=== PATIENT | male | born 1950 | race Native Hawaiian/Other Pacific Islander ===

== ENCOUNTER 2016-12-22 22:52 | Observation (INO) | payer SELFPAY ==
[2016-12-22 23:04] VITALS: BMI 25.8
[2016-12-22] MEDS ORDERED: DiphenhydrAMINE 50 mg/ml Inj IVP ONE (23:14)
[2016-12-22] MEDS ORDERED: Famotidine 20mg/50ml 20 MG/50 ML BAG IVPB STA (23:14)
[2016-12-22 23:42] LABS: ADD MANUAL DIFF? NO
--- NOTE | 2016-12-22 23:43 | ED PDOC ---
Arrival/HPI - General Chief Complaint: Allergic Reaction Time Seen by Provider: 12/22/16 23:04 Historian: Patient, Family - History of Present Illness Narrative History of Present Illness (Text): 12/22/16 23:11 66 year old male, whose past medical history includes hypertension, diabetes mellitus, and CVA , presents to the emergency department accompanied by family with complaints of a diffuse rash today. Family are unsure what triggered the reaction but note patient took Dayquil at 20:30 tonight. Family notes patient has also been experiencing diffuse body aches, abdominal bloating, and fever. He denies any headaches, shortness of breath, chest pain, nausea, vomiting, diarrhea or any other complaints at this time. Time/Duration: 4-6 hours Symptom Onset: Gradual Symptom Course: Unchanged Activities at Onset: Rest Context: Home Past Medical History - Provider Review Nursing Documentation Reviewed: Yes - Cardiac Hx Hypertension: Yes - Neurological HX Cerebrovascular Accident: Yes - HEENT Other/Comment: unknown eye surgery - Renal Hx Kidney Stones: Yes - Endocrine/Metabolic Hx Diabetes Mellitus Type 2: Yes - Hematological/Oncological Hx Blood Disorders: No - Integumentary Hx Dermatological Disorder: No - Musculoskeletal/Rheumatological Hx Musculoskeletal Disorders: No - Gastrointestinal Hx Gastrointestinal Disorders: No - Genitourinary/Gynecological Hx Genitourinary Disorders: No - Psychiatric Hx Psychophysiologic Disorder: No Hx Substance Use: No - Anesthesia Hx Anesthesia: Yes Family/Social History - Physician Review Nursing Documentation Reviewed: Yes Family/Social History: Unknown Family HX Smoking Status: Former Smoker Hx Alcohol Use: Yes Frequency of alcohol use: Socially Hx Substance Use: No Allergies/Home Meds Allergies/Adverse Reactions: Allergies No Known Allergies Allergy (Verified 12/22/16 23:04) Review of Systems - Physician Review All systems were reviewed & negative as marked: Yes - Review of Systems Constitutional: Fevers Respiratory: absent: SOB Gastrointestinal: Other (+abdominal pain). absent: Diarrhea, Nausea, Vomiting Musculoskeletal: Myalgias (+body aches) Skin: Rash Neurological: absent: Headache, Dizziness Physical Exam Vital Signs Reviewed: Yes Vital Signs Temp Pulse Resp BP Pulse Ox 12/22/16 23:04 99.2 F 95 H 16 152/84 H 94 L 12/22/16 23:03 99.2 F 95 H 16 152/84 H 94 L Temperature: Afebrile Blood Pressure: Hypertensive Pulse: Regular Respiratory Rate: Normal Appearance: Positive for: Well-Appearing, Non-Toxic, Comfortable Pain Distress: None Mental Status: Positive for: Alert and Oriented X 3 - Systems Exam Head: Present: Atraumatic, Normocephalic Pupils: Present: PERRL Extroacular Muscles: Present: EOMI Conjunctiva: Present: Normal Mouth: Present: Moist Mucous Membranes Neck: Present: Normal Range of Motion Respiratory/Chest: Present: Clear to Auscultation, Good Air Exchange. No: Respiratory Distress, Accessory Muscle Use Cardiovascular: Present: Regular Rate and Rhythm, Normal S1, S2. No: Murmurs Abdomen: Present: Normal Bowel Sounds. No: Tenderness, Distention, Peritoneal Signs Upper Extremity: Present: Normal Inspection. No: Cyanosis, Edema Lower Extremity: Present: Normal Inspection. No: Edema Neurological: Present: GCS=15, CN II-XII Intact, Speech Normal Skin: Present: Warm, Dry, Rashes (diffuse urticaria), Normal Color Psychiatric: Present: Alert, Oriented x 3, Normal Insight, Normal Concentration Medical Decision Making ED Course and Treatment: 12/22/16 23:11 Impression: 66 year old male with diffuse rash. Pt also complaining of fever, body aches, and abdominal bloating. Differential Diagnosis included but are not limited to: allergic reaction Plan: -- EKG -- Labs -- Benadryl, pepcid, solu-medrol -- Reassess and disposition Progress Notes: EKG: Ordered, reviewed, and independently interpreted the EKG. Rate : BPM Rhythm : NSR Interpretation : No ST-segment elevations or depressions, no T-wave inversions, normal intervals. Comparison : No previous EKG for comparison. 12/23/16 00:20 Reviewed labs, lipase: 3300. CT Abdomen and Pelvis ordered. 12/23/16 01:10 Case discussed with medical policy specialist production department supervisor, who is aware and agrees with plan. 12/23/16 01:[address] Ordonez, who is aware and agrees with plan. Accepts pt in to hospitalist service. Pt will go to [facility] observation for pancreatitis and urticaria. Pt is no acute distress. Discussed results and hospital observation plan with pt , who is aware and verbalizes understanding. Reviewed CT Abdomen and Pelvis, shows: Possible enteritis. Mild left hydronephrosis and bilateral renal calculi, noting trace perinephric stranding suggest correlation for infection. Hiatus hernia. Normal appendix. - Lab Interpretations Lab Results: 12/22/16 23:25 12/22/16 23:25 Lab Results 12/22/16 23:25: Amylase 403 H 12/22/16 23:25: Alcohol, Quantitative < 10 12/22/16 23:25: Triglycerides 308 H, Cholesterol 147, LDL Cholesterol Direct 55 , HDL Cholesterol 30 12/22/16 23:25: Sodium 135, Potassium 3.9, Chloride 102, Carbon Dioxide 21, Anion Gap 16, BUN 31 H, Creatinine 1.3, Est GFR ( Amer) > 60, Est GFR ( Non-Af Amer) 55, Random Glucose 181 H, Calcium 8.8, Total Bilirubin 1.0, AST 36 , ALT 33, Alkaline Phosphatase 94, Troponin I < 0.01, Total Protein 7.8, Albumin 4.1, Globulin 3.7, Albumin/Globulin Ratio 1.1, Lipase 3300 H 12/22/16 23:25: WBC 7.2, RBC 4.90, Hgb 15.3, Hct 42.6, MCV 86.9, MCH 31.2, MCHC 35.9, RDW 12.3, Plt Count 179, MPV 9.3, Gran % 69.5 H, Lymph % (Auto) 14.9 L, [place] % (Auto) 12.7 H, Eos % (Auto) 2.9, Baso % (Auto) 0.0, Gran # 5.00, Lymph # 1.1 L, [place] # 0.9 H, Eos # 0.2, Baso # 0.00 I have reviewed the lab results: Yes - RAD Interpretation Narrative RAD Interpretations (Text): CT Abdomen and Pelvis shows: Lower thorax: There is limited evaluation of the aortic root, however there is suggestion that it may be prominent as do approximately 4 cm, please correlate with symptoms and previous imaging regarding need for further evaluation at this time. Calcifications favored to be associated with the aortic leaflets, calcifications favored to be associated with coronary artery disease. Lung bases with mild dependent atelectatic changes as well as dionte-fissural thickening on the left. No evidence to suggest acute infection. Small to moderate hiatus hernia with air in the esophagus. ABDOMEN: Liver: Unremarkable. Gallbladder and bile ducts: Unremarkable. No calcified stones. No ductal dilation. Pancreas: Unremarkable. No ductal dilation. Spleen: Unremarkable. No splenomegaly. Adrenals: Unremarkable. No mass. Kidneys and ureters: Mild left hydronephrosis and bilateral renal calculi. Mild bilateral perinephric stranding. Stomach and bowel: There is a small fat containing anterior abdominal hernia. No abdominal wall hernias containing bowel. Diverticuli with no specific findings that would confirm acute diverticulitis at this time Fluid fills normal caliber small bowel loops suggesting possibility of enteritis. No obstruction. No findings to suggest bowel necrosis or gangrene. Appendix: Normal appendix. PELVIS: Bladder: Punctate calcification in the anterior wall of the bladder associated with possible trace mural thickening is seen sagittal image 70, please correlate with previous studies. No stones. Reproductive: Prostate 5.5 cm with scattered calcifications. ABDOMEN and PELVIS: Intraperitoneal space: Unremarkable. No free air. No significant fluid collection. Bones/joints: Probable disc bulge or herniation L5-S1. No acute fracture. No dislocation. Soft tissues: Gynecomastia. Vasculature: Atherosclerotic calcifications with no evidence of abdominal aortic aneurysm. Lymph nodes: Unremarkable. No enlarged lymph nodes. IMPRESSION: Possible enteritis. Mild left hydronephrosis and bilateral renal calculi, noting trace perinephric stranding suggest correlation for infection. Hiatus hernia. Normal appendix. Radiology Orders: 12/23/16 00:20 ABD & PELVIS W/O PO OR IV CONT [CT] Stat Storage Consultant: Radiologist - EKG Interpretation Interpreted by ED Physician: Yes Type: 12 lead EKG - Medication Orders Current Medication Orders: Discontinued Medications Acetaminophen (Tylenol 325mg Tab) 650 mg PO Q6H PRN PRN Reason: Fever >100.4 F Albuterol Sulfate (Albuterol 0.083% Inhal Vidhya (2.5 Mg/3 Ml) Ud) 2.5 mg IH Q2H PRN PRN Reason: Shortness of Breath Aspirin (Ecotrin) 81 mg PO DAILY RAMESH Last Admin: 12/23/16 11:05 Dose: 81 mg Atorvastatin Calcium (Lipitor) 10 mg PO DIN RAMESH Chlordiazepoxide (Librium) 25 mg PO STAT STA PRN Reason: Protocol Stop: 12/23/16 01:15 Last Admin: 12/23/16 01:25 Dose: Chlordiazepoxide (Librium) 25 mg PO Q6H PRN; Protocol PRN Reason: Etoh withdrawal Diphenhydramine HCl (Benadryl) 25 mg IVP ONCE ONE Stop: 12/22/16 23:15 Last Admin: 12/22/16 23:31 Dose: 25 mg Diphenhydramine HCl (Benadryl) 25 mg IVP Q6H PRN PRN Reason: itchiness Enoxaparin Sodium (Lovenox) 40 mg SC DAILY [facility] PRN Reason: Protocol Last Admin: 12/23/16 11:05 Dose: 40 mg Famotidine (Pepcid) 20 mg PO BID [facility] Last Admin: 12/23/16 11:05 Dose: 20 mg Gabapentin (Neurontin) 300 mg PO TID [facility] PRN Reason: Protocol Last Admin: 12/23/16 11:05 Dose: 300 mg Re-Assess: Reassess Psych Meds Document 12/23/16 12:05 AB (Rec: 12/23/16 12:13 AB [id number]) Reassess Psych Med Effective Famotidine (Pepcid 20mg/50ml Premix) 20 mg in 50 mls @ 100 mls/hr IVPB STAT STA Stop: 12/22/16 23:43 Last Admin: 12/22/16 23:30 Dose: 100 mls/hr Folic Acid 1 mg/ Sodium (Chloride) 50.2 mls @ 100.4 mls/hr IV DAILY [facility] Last Admin: 12/23/16 11:15 Dose: 100.4 mls/hr Lactated Ringer's (Lactated Ringer's) 1,000 mls @ 150 mls/hr IV .Q6H40M [facility] Last Admin: 12/23/16 11:07 Dose: Ibuprofen (Motrin Tab) 600 mg PO Q6H PRN PRN Reason: Pain, Mild (1-3) Insulin Human Lispro (Humalog) 0 units SC [facility] PRN Reason: Protocol Last Admin: 12/23/16 08:03 Dose: 3 units Insulin Human Lispro (Humalog) 0 units SC [facility] PRN Reason: Protocol Last Admin: 12/23/16 13:09 Dose: 10 units Comments: Timed with meals Lisinopril (Zestril) 5 mg PO DAILY [facility] Last Admin: 12/23/16 11:05 Dose: 5 mg Methylprednisolone (Solu-Medrol) 125 mg IVP ONCE ONE Stop: 12/22/16 23:15 Last Admin: 12/22/16 23:31 Dose: 125 mg Tamsulosin HCl (Flomax) 0.4 mg PO DAILY [facility] Last Admin: 12/23/16 11:05 Dose: 0.4 mg Thiamine HCl (Vitamin B1 Inj) 100 mg IV DAILY [facility] Last Admin: 12/23/16 11:06 Dose: 100 mg - Scribe Statement The provider has reviewed the documentation as recorded by the Jinibper Parra training under Lauryn Krueger Provider Scribe Attestation: All medical record entries made by the Scribe were at my direction and personally dictated by me. I have reviewed the chart and agree that the record accurately reflects my personal performance of the history, physical exam, medical decision making, and the department course for this patient. I have also personally directed, reviewed, and agree with the discharge instructions and disposition. Disposition/Present on Arrival - Present on Arrival Any Indicators Present on Arrival: No History of DVT/PE: No History of Uncontrolled Diabetes: No Urinary Catheter: No History of Decub. Ulcer: No History Surgical Site Infection Following: None - Disposition Have Diagnosis and Disposition been Completed?: Yes Diagnosis: Allergic drug rash, Pancreatitis Disposition: HOSPITALIZED Disposition Time: 00:35 Condition: GOOD
[2016-12-23 00:01] LABS: ALB/GLOB RATIO 1.1 (1.1-1.8); ALKALINE PHOSPHATASE 94 U/L (38-133); ALT/SGPT 33 U/L (7-56); AST/SGOT 36 U/L (15-59); BLOOD UREA NITROGEN 31 mg/dL (7-21); CALCIUM 8.8 mg/dL (8.4-10.5); CARBON DIOXIDE 21 mmol/L (21-33); CHLORIDE 102 mmol/L (98-107); GFR AFRICAN-AMERICAN > 60; GLUCOSE,RANDOM 181 mg/dL (70-110); POTASSIUM 3.9 mmol/L (3.6-5.0); SODIUM 135 mmol/L (132-148); TOTAL PROTEIN 7.8 g/dL (5.8-8.3)
[2016-12-23 00:10] LABS: LIPASE 3300 U/L (23-300)
[2016-12-23 00:18] LABS: EOS # 0.2 (0.0-0.7); EOS % 2.9 % (1.5-5.0); GRAN % 69.5 % (50.0-68.0); HEMATOCRIT 42.6 % (42.0-52.0); LYMPH # 1.1 (1.2-3.4); LYMPH % 14.9 % (22.0-35.0); MEAN CELL VOLUME 86.9 fL (80.0-105.0); MEAN CORPUSCULAR HEMOGLOBIN 31.2 pg (25.0-35.0); MEAN CORPUSCULAR HGB CONC 35.9 g/dl (31.0-37.0); MEAN PLATELET VOLUME 9.3 fl (7.0-11.0); MONO # 0.9 (0.1-0.6); MONO % 12.7 % (1.0-6.0); PLATELET COUNT 179 10^3/uL (120.0-450.0); RED CELL DISTRIBUTION WIDTH 12.3 % (11.5-14.5); WHITE BLOOD COUNT 7.2 10^3/ul (4.5-11.0)
[2016-12-23 00:22] LABS: TROPONIN I < 0.01 ng/mL
[2016-12-23] MEDS ORDERED: Albuterol 0.083% Inhal Sol (2.5 mg/3 mL) UD IH PRN (01:16)
[2016-12-23] MEDS: Lactated Ringer's 1,000 ML IV SCH ×2 (01:29→11:07)
--- NOTE | 2016-12-23 01:32 | CP.PCM.HP ---
<ArcenioFoster walton - Last Filed: 12/23/16 02:46> History of Present Illness - History of Present Illness History of Present Illness: CC: Itchiness 66 year old male, whose past medical history includes hypertension, diabetes mellitus, and CVA is presenting to the ED for extreme itchiness since earlier today. As per family at bedside, they said that the father has felt "off" for the past few days, needing to take nyquil to sleep and today he decided to take dayquil as well thinking it would help him get through the day; after taking it he noticed that his hands, arms, and entire body started to itch with an extremely red rash that went all over his body. The patient never had any trouble breathing. The patient has never had a reaction like this in the past and he states he took dayquil earlier today. He started taking Jardiance earlier this week as well which he was not on prior. He denies any other current symptoms but is extremely drowsy from all of the benedryl that he previously got; denying any current fevers/chills, ORTEGA, CP, SOB, abdominal pain, N/V/D, dysuria/freq/urg, or lower extremity pain/swelling. Pmhx: HTN, DMII, CVA/TIA last month in the [facility], previously treated for latent TB as well finished treatment, renal stones in the past (was also discharged from the hospital in the [facility] recently for this). Surgeries: denies Allergies: Denies any he knows of Medicines: Gabapentin, Jardiance (empagliflozin) new previously on Januvia ( Sitagliptin, unclear if stopped taking, but has been on for a while), family will bring in the rest of the medications in the morning FamHx: DM, HTN on both sides Social: lives with family/, indepdendent in all IADL/ADl, walks without cane , drinks 3-4 beers daily, former smoker Present on Admission - Present on Admission Any Indicators Present on Admission: No History of DVT/PE: No History of Uncontrolled Diabetes: Yes Urinary Catheter: No Decubitus Ulcer Present: No Past Patient History - Past Social History Smoking Status: Former Smoker - CARDIAC Hx Hypertension: Yes - NEUROLOGICAL HX Cerebrovascular Accident: Yes - HEENT Other/Comment: unknown eye surgery - RENAL Hx Kidney Stones: Yes - ENDOCRINE/METABOLIC Hx Diabetes Mellitus Type 2: Yes - HEMATOLOGICAL/ONCOLOGICAL Hx Blood Disorders: No - INTEGUMENTARY Hx Dermatological Problems: No - MUSCULOSKELETAL/RHEUMATOLOGICAL Hx Musculoskeletal Disorders: No - GASTROINTESTINAL Hx Gastrointestinal Disorders: No - GENITOURINARY/GYNECOLOGICAL Hx Genitourinary Disorders: No - PSYCHIATRIC Hx Psychophysiologic Disorder: No Hx Substance Use: No - SURGICAL HISTORY Hx Surgeries: No - ANESTHESIA Hx Anesthesia: Yes Meds Allergies/Adverse Reactions: Allergies Allergy/AdvReac Type Severity Reaction Status Date / Time No Known Allergies Allergy Verified 12/22/16 23:04 Physical Exam - Constitutional Appears: Well, Non-toxic - Eye Exam Eye Exam: EOMI - ENT Exam ENT Exam: Mucous Membranes Moist - Neck Exam Neck exam: Positive for: Full Rom. Negative for: Lymphadenopathy - Respiratory Exam Respiratory Exam: Clear to Auscultation Bilateral - Cardiovascular Exam Cardiovascular Exam: REGULAR RHYTHM - GI/Abdominal Exam GI & Abdominal Exam: Normal Bowel Sounds, Soft - Rectal Exam Rectal Exam: Deferred - Extremities Exam Extremities exam: Positive for: full ROM, normal inspection. Negative for: calf tenderness, joint swelling, pedal edema - Back Exam Back exam: NORMAL INSPECTION. absent: CVA tenderness (L), CVA tenderness (R) - Neurological Exam Additional comments: drowsy s/p benadryl; sleeping comfortably - Skin Skin Exam: Warm Results - Vital Signs Recent Vital Signs: Last Vital Signs Temp 99.2 F 12/22/16 23:04 Pulse 95 H 12/22/16 23:04 Resp 16 12/22/16 23:04 BP 152/84 H 12/22/16 23:04 Pulse Ox 94 L 12/22/16 23:04 - Labs Result Diagrams: 12/22/16 23:25 12/22/16 23:25 Labs: Laboratory Results - last 24 hr 12/22/16 12/22/16 23:25 23:25 WBC 7.2 RBC 4.90 Hgb 15.3 Hct 42.6 MCV 86.9 MCH 31.2 MCHC 35.9 RDW 12.3 Plt Count 179 MPV 9.3 Gran % 69.5 H Lymph % (Auto) 14.9 L [place] % (Auto) 12.7 H Eos % (Auto) 2.9 Baso % (Auto) 0.0 Gran # 5.00 Lymph # 1.1 L [place] # 0.9 H Eos # 0.2 Baso # 0.00 Sodium 135 Potassium 3.9 Chloride 102 Carbon Dioxide 21 Anion Gap 16 BUN 31 H Creatinine 1.3 Est GFR ( Amer) > 60 Est GFR (Non-Af Amer) 55 Random Glucose 181 H Calcium 8.8 Total Bilirubin 1.0 AST 36 ALT 33 Alkaline Phosphatase 94 Troponin I < 0.01 Total Protein 7.8 Albumin 4.1 Globulin 3.7 Albumin/Globulin Ratio 1.1 Lipase 3300 H Assessment & Plan - Assessment and Plan (Free Text) Assessment: 66yo M admitted for allergic hypersensitivity Rxn Allergic Hypersensitivity -patient has no current rash, SOB, or itchiness on exam and is maintaining airway -PRN benedryl IV Q6H 25mg -patient recently started Jardiance for diabetes; can be known to cause pruritis and dermatological reactions as well as arthralgia -lipase extremely elevated ~3000; januvia known to cause pancreatitis and unclear if patient is still taking Januvia -LR at 150ml/hr -Triglycerides ~300; unlikely elevated from these -CT showed Mild left hydronephrosis and bilateral renal calculi Punctate calcification associated with mural thickening in the anterior wall of the bladder with prominent prostate -gallbladder and pancreas unremarkable HTN -lisinopril 5mg PO daily DM -insulin sliding scale -f/u hemoglobin A1C -patient has previously been on levemir as well but not currently -will likely need to d/c januvia due to elevation in lipase Proph -CLD Diet -Lovenox SC -OOB encouraged -CIWA due to recent EtOH intake; librium PRN; thiamine and folate; f/u drug screen Case discussed with Dr. Mery Nagy PGY1 Night Float Decision To Admit - Pt Status Changed To: Hospital Disposition Of: Observation - . Bed Request Type: Med/Surg Admitting Physician: Keyla Ordonez <Keyla Ordonez - Last Filed: 12/23/16 03:29> Results - Vital Signs Recent Vital Signs: Last Vital Signs Temp 99.4 F 12/23/16 02:43 Pulse 80 12/23/16 02:43 Resp 20 12/23/16 02:43 BP 153/93 H 12/23/16 02:43 Pulse Ox 94 L 12/22/16 23:04 - Labs Result Diagrams: 12/22/16 23:25 06/25/17 23:25 Attending/Attestation - Attestation I have personally seen and examined this patient.: Yes I have fully participated in the care of the patient.: Yes I have reviewed all pertinent clinical information: Yes Notes (Text): 12/23/16 03:28 Patient was seen when he was in ER in bed # 5. Agree with history, physical examination, assessment and plan. 66 year old male with history of HTN, DM, CVA, B/L cataract surgery,renal stone, neg colonoscopy 5 years ago, smoking, alcohol use comes in with complains of generalized intense itching, redness of both eyes, left foot pain, elevated lipase, elevated BUN, elevated triglycerides ,CT abdomen/pelvis showing bilateral renal calculi, normal pancreas,mild enteritis.
[2016-12-23] MEDS ORDERED: DiphenhydrAMINE 50 mg/ml Inj IVP PRN (01:38)
[2016-12-23 01:45] LABS: CHOLESTEROL 147 mg/dL (130-200)
--- NOTE | 2016-12-23 02:44 | CT ---
EXAM: CT Abdomen and Pelvis Without Intravenous Contrast CLINICAL HISTORY: 66 years old, male; Pain; Abdominal pain; Generalized; Additional info: Abd pain TECHNIQUE: Axial computed tomography images of the abdomen and pelvis without intravenous contrast. This CT exam was performed using one or more of the following dose reduction techniques: automated exposure control, adjustment of the mA and/or kV according to patient size, and/or use of iterative reconstruction technique. Coronal and sagittal reformatted images were created and reviewed. EXAM DATE/TIME: Exam ordered 12/23/2016 12:20 AM COMPARISON: No relevant prior studies available. FINDINGS: Lower thorax: There is limited evaluation of the aortic root, however there is suggestion that it may be prominent as do approximately 4 cm, please correlate with symptoms and previous imaging regarding need for further evaluation at this time. Calcifications favored to be associated with the aortic leaflets, calcifications favored to be associated with coronary artery disease. Lung bases with mild dependent atelectatic changes as well as dionte-fissural thickening on the left. No evidence to suggest acute infection. Small to moderate hiatus hernia with air in the esophagus. ABDOMEN: Liver: Unremarkable. Gallbladder and bile ducts: Unremarkable. No calcified stones. No ductal dilation. Pancreas: Unremarkable. No ductal dilation. Spleen: Unremarkable. No splenomegaly. Adrenals: Unremarkable. No mass. Kidneys and ureters: Mild left hydronephrosis and bilateral renal calculi. Mild bilateral perinephric stranding. Stomach and bowel: There is a small fat containing anterior abdominal hernia. No abdominal wall hernias containing bowel. Diverticuli with no specific findings that would confirm acute diverticulitis at this time Fluid fills normal caliber small bowel loops suggesting possibility of enteritis. No obstruction. No findings to suggest bowel necrosis or gangrene. Appendix: Normal appendix. PELVIS: Bladder: Punctate calcification in the anterior wall of the bladder associated with possible trace mural thickening is seen sagittal image 70, please correlate with previous studies. No stones. Reproductive: Prostate 5.5 cm with scattered calcifications. ABDOMEN and PELVIS: Intraperitoneal space: Unremarkable. No free air. No significant fluid collection. Bones/joints: Probable disc bulge or herniation L5-S1. No acute fracture. No dislocation. Soft tissues: Gynecomastia. Vasculature: Atherosclerotic calcifications with no evidence of abdominal aortic aneurysm. Lymph nodes: Unremarkable. No enlarged lymph nodes. IMPRESSION: Possible enteritis. Mild left hydronephrosis and bilateral renal calculi, noting trace perinephric stranding suggest correlation for infection. Hiatus hernia. Normal appendix. Punctate calcification associated with mural thickening in the anterior wall of the bladder as above, urology evaluation suggested. Prominent prostate. Partially imaged aortic root prominent, please compare to previous studies and correlate with symptoms. The absence of intravenous contrast greatly limits evaluation of the parenchymal organs. The absence of oral contrast limits evaluation of the gastrointestinal tract. There are no previous images currently available, please compare on-site.
[2016-12-23 02:59] VITALS: RESP 20
[2016-12-23] MEDS ORDERED: Insulin Lispro 1 UNITS/0.01 ML SC SCH ×2 (07:30→09:45)
[2016-12-23 07:44] LABS: ADD MANUAL DIFF? NO
[2016-12-23 07:47] LABS: EOS % 0.2 % (1.5-5.0); GRAN # 5.14 (1.4-6.5); GRAN % 89.8 % (50.0-68.0); HEMATOCRIT 40.1 % (42.0-52.0); LYMPH # 0.5 (1.2-3.4); LYMPH % 9.1 % (22.0-35.0); MEAN CORPUSCULAR HEMOGLOBIN 30.6 pg (25.0-35.0); MEAN CORPUSCULAR HGB CONC 35.2 g/dl (31.0-37.0); MEAN PLATELET VOLUME 8.9 fl (7.0-11.0); MONO # 0.1 (0.1-0.6); MONO % 0.9 % (1.0-6.0); PLATELET COUNT 158 10^3/uL (120.0-450.0); RED CELL DISTRIBUTION WIDTH 12.2 % (11.5-14.5); WHITE BLOOD COUNT 5.7 10^3/ul (4.5-11.0)
[2016-12-23 08:00] LABS: ALB/GLOB RATIO 1.2 (1.1-1.8); ALKALINE PHOSPHATASE 75 U/L (38-133); ALT/SGPT 27 U/L (7-56); AST/SGOT 28 U/L (15-59); BILIRUBIN,TOTAL 0.9 mg/dL (0.2-1.3); BLOOD UREA NITROGEN 30 mg/dL (7-21); CALCIUM 8.7 mg/dL (8.4-10.5); CARBON DIOXIDE 20 mmol/L (21-33); CHLORIDE 103 mmol/L (98-107); GFR AFRICAN-AMERICAN > 60; GLUCOSE,RANDOM 256 mg/dL (70-110); POTASSIUM 4.6 mmol/L (3.6-5.0); SODIUM 134 mmol/L (132-148); TOTAL PROTEIN 7.3 g/dL (5.8-8.3)
[2016-12-23 08:09] LABS: TROPONIN I < 0.01 ng/mL
[2016-12-23 08:25] VITALS: BP 137/88; PULSE 81; TEMP 98; O2SAT 95
[2016-12-23] MEDS ORDERED: Enoxaparin 40 mg Syringe SC SCH (10:00)
[2016-12-23] MEDS ORDERED: Folic Acid 1 MG in Sodium Chloride 0.9% 50 ML IV SCH (10:00)
[2016-12-23] MEDS ORDERED: Thiamine 100 mg/ml Inj IV SCH (10:00)
--- NOTE | 2016-12-23 12:55 | CP.PCM.DIS ---
<Mono Gonzalez - Last Filed: 12/23/16 12:40> Provider - Provider Date of Admission: 12/23/16 01:11 Attending physician: Jordyn Uribe MD Time Spent in preparation of Discharge (in minutes): 45 Diagnosis - Discharge Diagnosis (1) Allergic drug rash Status: Acute Hospital Course - Lab Results Lab Results: Most Recent Lab Values WBC 5.7 10^3/ul (4.5-11.0) D 12/23/16 07:20 RBC 4.61 10^6/uL (3.5-6.1) 12/23/16 07:20 Hgb 14.1 gm/dL (14.0-18.0) 12/23/16 07:20 Hct 40.1 % (42.0-52.0) L 12/23/16 07:20 MCV 87.0 fL (80.0-105.0) 12/23/16 07:20 MCH 30.6 pg (25.0-35.0) 12/23/16 07:20 MCHC 35.2 g/dl (31.0-37.0) 12/23/16 07:20 RDW 12.2 % (11.5-14.5) 12/23/16 07:20 Plt Count 158 10^3/uL (120.0-450.0) 12/23/16 07:20 MPV 8.9 fl (7.0-11.0) 12/23/16 07:20 Gran % 89.8 % (50.0-68.0) H 12/23/16 07:20 Lymph % (Auto) 9.1 % (22.0-35.0) L 12/23/16 07:20 [place] % (Auto) 0.9 % (1.0-6.0) L 12/23/16 07:20 Eos % (Auto) 0.2 % (1.5-5.0) L 12/23/16 07:20 Baso % (Auto) 0.0 % (0.0-3.0) 12/23/16 07:20 Gran # 5.14 (1.4-6.5) 12/23/16 07:20 Lymph # 0.5 (1.2-3.4) L 12/23/16 07:20 [place] # 0.1 (0.1-0.6) 12/23/16 07:20 Eos # 0.0 (0.0-0.7) 12/23/16 07:20 Baso # 0.00 K/mm3 (0.0-2.0) 12/23/16 07:20 Sodium 134 mmol/L (132-148) 12/23/16 07:20 Potassium 4.6 mmol/L (3.6-5.0) 12/23/16 07:20 Chloride 103 mmol/L (98-107) 12/23/16 07:20 Carbon Dioxide 20 mmol/L (21-33) L 12/23/16 07:20 Anion Gap 16 (10-20) 12/23/16 07:20 BUN 30 mg/dL (7-21) H 12/23/16 07:20 Creatinine 1.4 mg/dL (0.5-1.4) 12/23/16 07:20 Est GFR ( Amer) > 60 12/23/16 07:20 Est GFR (Non-Af Amer) 51 12/23/16 07:20 POC Glucose (mg/dL) 303 mg/dL (65-110) H 12/23/16 11:11 Random Glucose 256 mg/dL (70-110) H 12/23/16 07:20 Calcium 8.7 mg/dL (8.4-10.5) 12/23/16 07:20 Total Bilirubin 0.9 mg/dL (0.2-1.3) 12/23/16 07:20 AST 28 U/L (15-59) 12/23/16 07:20 ALT 27 U/L (7-56) 12/23/16 07:20 Alkaline Phosphatase 75 U/L (38-133) 12/23/16 07:20 Lactate Dehydrogenase 438 U/L (333-699) 12/23/16 07:20 Total Creatine Kinase 117 U/L (35-230) 12/23/16 07:20 Troponin I < 0.01 ng/mL 12/23/16 07:20 Total Protein 7.3 g/dL (5.8-8.3) 12/23/16 07:20 Albumin 4.0 g/dL (3.0-4.8) 12/23/16 07:20 Globulin 3.3 gm/dL 12/23/16 07:20 Albumin/Globulin Ratio 1.2 (1.1-1.8) 12/23/16 07:20 Triglycerides 308 mg/dL (35-160) H 12/22/16 23:25 Cholesterol 147 mg/dL (130-200) 12/22/16 23:25 LDL Cholesterol Direct 55 mg/dL (0-129) 12/22/16 23:25 HDL Cholesterol 30 mg/dL (29-60) 12/22/16 23:25 Amylase 403 U/L (35-125) H 12/22/16 23:25 Lipase 3300 U/L (23-300) H 12/22/16 23:25 Alcohol, Quantitative < 10 mg/dL (0-10) 12/22/16 23:25 - Hospital Course Hospital Course: 66 M with PMhx of hypertension, diabetes mellitus, and CVA , [place] [facility] with complaints of a diffuse rash today following ingestion of "dayquil" medication. Pt was administered solumedrol and benadryl in ED which had resolved his allergic reaction. Pt had EKG which was NSR without any ST changes and routine labwork. There was a question of ETOH abuse however labwork did not demonstrate significant etoh levels, and pt was not withdrawing while in hospital. Pt was found to have elevated lipase of [address] abdomen. CT abdomen did not demonstrate any pancreatitis. Pt was admitted for observation. Pt was feeling much better the following morning, no longer had any urticaria or rash. Pt did no have any abdominal pain and had an appetite. Pt was advanced to CLD and then to soft consistent carb diet which the patient tolerated. Pt was ambulating and moving bowels and bladder regularly. Pt was encouraged to eat a diabetic firendly diet and to refrain from greasy fatty foods. Pt upon dc will fu with his PMD in the [facility] as the pt is only visiting family here in the [facility]. Pt is to go to the [facility] tomorrow. Discharge Exam - Head Exam Head Exam: ATRAUMATIC, NORMAL INSPECTION, NORMOCEPHALIC - Eye Exam Eye Exam: EOMI, Normal appearance, PERRL Pupil Exam: NORMAL ACCOMODATION, PERRL - ENT Exam ENT Exam: Mucous Membranes Moist - Respiratory Exam Respiratory Exam: Clear to PA & Lateral, NORMAL BREATHING PATTERN, UNREMARKABLE - Cardiovascular Exam Cardiovascular Exam: RRR, +S1, +S2 - GI/Abdominal Exam GI & Abdominal Exam: Normal Bowel Sounds, Soft. absent: Tenderness - Extremities Exam Extremities exam: normal inspection - Back Exam Back exam: NORMAL INSPECTION - Neurological Exam Neurological exam: Alert, CN II-XII Intact, Normal Gait, Oriented x3, Reflexes Normal - Psychiatric Exam Psychiatric exam: Normal Affect, Normal Mood - Skin Skin Exam: Dry, Intact, Normal Color, Warm Discharge Plan - Discharge Medications Prescriptions: DiphenhydrAMINE [Benadryl] 25 mg PO DAILY #14 cap Famotidine [Pepcid] 40 mg PO DAILY #30 tablet - Follow Up Plan Condition: GOOD Disposition: HOME/ ROUTINE Instructions: Pancreatitis (DC), Pancreatitis (GEN), Urticaria (GEN) Additional Instructions: 1. Pt is to fu with Home PMD in [facility] as early as possible 2. Pt is to take benadryl as prescribed 3. Pt is to avoid dayquil for the time being 4. Pt is to resume home meds as previously prescribed by PMD 5. Pt is to return to [facility] if develop any acute or adverse symptoms RN NOTE Discharge instructions reviewed with pat. He reminded to pick-up new OTC prescriptions of Benadryl and Pepcid. He to continue taking any prescriptions he was taking prior to his hospital visit. In the event he has any difficult breathing, unusual bleeding, temperature over 100F, change in mental status, severe pain or any worsening of his condition, he is to contact his PMD or the nearest ED immediately. Patient ambulates off unit with his two family members. <Jordyn Uribe - Last Filed: 12/23/16 16:05> Provider - Provider Date of Admission: 12/23/16 01:11 Attending physician: Jordyn Uribe MD Hospital Course - Lab Results Lab Results: Most Recent Lab Values WBC 5.7 10^3/ul (4.5-11.0) D 12/23/16 07:20 RBC 4.61 10^6/uL (3.5-6.1) 12/23/16 07:20 Hgb 14.1 gm/dL (14.0-18.0) 12/23/16 07:20 Hct 40.1 % (42.0-52.0) L 12/23/16 07:20 MCV 87.0 fL (80.0-105.0) 12/23/16 07:20 MCH 30.6 pg (25.0-35.0) 12/23/16 07:20 MCHC 35.2 g/dl (31.0-37.0) 12/23/16 07:20 RDW 12.2 % (11.5-14.5) 12/23/16 07:20 Plt Count 158 10^3/uL (120.0-450.0) 12/23/16 07:20 MPV 8.9 fl (7.0-11.0) 12/23/16 07:20 Gran % 89.8 % (50.0-68.0) H 12/23/16 07:20 Lymph % (Auto) 9.1 % (22.0-35.0) L 12/23/16 07:20 [place] % (Auto) 0.9 % (1.0-6.0) L 12/23/16 07:20 Eos % (Auto) 0.2 % (1.5-5.0) L 12/23/16 07:20 Baso % (Auto) 0.0 % (0.0-3.0) 12/23/16 07:20 Gran # 5.14 (1.4-6.5) 12/23/16 07:20 Lymph # 0.5 (1.2-3.4) L 12/23/16 07:20 [place] # 0.1 (0.1-0.6) 12/23/16 07:20 Eos # 0.0 (0.0-0.7) 12/23/16 07:20 Baso # 0.00 K/mm3 (0.0-2.0) 12/23/16 07:20 Sodium 134 mmol/L (132-148) 12/23/16 07:20 Potassium 4.6 mmol/L (3.6-5.0) 12/23/16 07:20 Chloride 103 mmol/L (98-107) 12/23/16 07:20 Carbon Dioxide 20 mmol/L (21-33) L 12/23/16 07:20 Anion Gap 16 (10-20) 12/23/16 07:20 BUN 30 mg/dL (7-21) H 12/23/16 07:20 Creatinine 1.4 mg/dL (0.5-1.4) 12/23/16 07:20 Est GFR ( Amer) > 60 12/23/16 07:20 Est GFR (Non-Af Amer) 51 12/23/16 07:20 POC Glucose (mg/dL) 303 mg/dL (65-110) H 12/23/16 11:11 Random Glucose 256 mg/dL (70-110) H 12/23/16 07:20 Hemoglobin A1c 8.7 % (4.2-6.5) H 12/23/16 07:20 Calcium 8.7 mg/dL (8.4-10.5) 12/23/16 07:20 Total Bilirubin 0.9 mg/dL (0.2-1.3) 12/23/16 07:20 AST 28 U/L (15-59) 12/23/16 07:20 ALT 27 U/L (7-56) 12/23/16 07:20 Alkaline Phosphatase 75 U/L (38-133) 12/23/16 07:20 Lactate Dehydrogenase 438 U/L (333-699) 12/23/16 07:20 Total Creatine Kinase 117 U/L (35-230) 12/23/16 07:20 Troponin I < 0.01 ng/mL 12/23/16 07:20 Total Protein 7.3 g/dL (5.8-8.3) 12/23/16 07:20 Albumin 4.0 g/dL (3.0-4.8) 12/23/16 07:20 Globulin 3.3 gm/dL 12/23/16 07:20 Albumin/Globulin Ratio 1.2 (1.1-1.8) 12/23/16 07:20 Triglycerides 308 mg/dL (35-160) H 12/22/16 23:25 Cholesterol 147 mg/dL (130-200) 12/22/16 23:25 LDL Cholesterol Direct 55 mg/dL (0-129) 12/22/16 23:25 HDL Cholesterol 30 mg/dL (29-60) 12/22/16 23:25 Amylase 403 U/L (35-125) H 12/22/16 23:25 Lipase 3300 U/L (23-300) H 12/22/16 23:25 Alcohol, Quantitative < 10 mg/dL (0-10) 12/22/16 23:25 Attending/Attestation - Attestation I have personally seen and examined this patient.: Yes I have fully participated in the care of the patient.: Yes I have reviewed all pertinent clinical information, including history, physical exam and plan: Yes Notes (Text): 12/23/16 16:03 attending note; Patient seen and examined with resident. Patient is a 66-year-old [place] male admitted with itchiness and mild rash after taking NyQuil. Patient was given IV Solu-Medrol and Benadryl. currently patient denies any rash or itchiness or shortness of breath. History of alcohol use; elevated lipase. Currently no abdominal pain. Tolerating diet. Alcohol cessation is strongly advised. Patient is going back to [facility] tomorrow. Advised to follow-up with PMD. diagnosis; Allergic reaction Diabetes
== END 2016-12-23 13:57 | disposition home or self-care (01) ==
LOC: ED 22:52 → ERH 12-23 01:11 → 3RSO 12-23 02:36
PROVIDERS: ADMIT Internal Medicine; ATTEND Internal Medicine
DX: L27.0 Generalized skin eruption due to drugs and medicaments taken internally (principal); T50.995A Adverse effect of other drugs, medicaments and biological substances, initial encounter; I10 Essential (primary) hypertension; E11.9 Type 2 diabetes mellitus without complications; N13.2 Hydronephrosis with renal and ureteral calculous obstruction; K44.9 Diaphragmatic hernia without obstruction or gangrene; Z86.73 Personal history of transient ischemic attack (TIA), and cerebral infarction without residual deficits; Z87.891 Personal history of nicotine dependence; Z79.84 Long term (current) use of oral hypoglycemic drugs
CPT/HCPCS: 36415; 74176; 80053; 80061; 82150; 82550; 82948; 83036; 83615; 83690; 84484; 85025; 96365; 96372; 96375; 99285; G0378; G0480; J1200; J1650; J2930; J3411; J7120